=== PATIENT | male | born 1975 | race African-American/Black ===

== ENCOUNTER 2021-04-25 14:51 | Emergency (ER) | payer MEDICAID ==
[~2021-04-25] VITALS: Ht 177.8 cm; Wt 100.0 kg
[2021-04-25 14:55] VITALS: BP 98/66
[2021-04-25 16:24] LABS: BASOPHILS % 1.4 % (0.0-2.0); EOSINOPHILS % 3.8 % (0.0-5.0); HEMATOCRIT. 37.2 % (42.0-52.0); HEMOGLOBIN. 11.7 g/dL (14.0-18.0); MEAN CORPUSCULAR HEMOGLOBIN 28.1 pg (28.0-32.0); MEAN CORPUSCULAR VOLUME 89.1 fL (80.0-94.0); MEAN PLATELET VOLUME 7.8 fl (7.4-10.4); MONOCYTES % 6.2 % (2.0-8.0); NEUTROPHILS % 65.6 % (40.0-76.0); PLATELET 257 x1000/uL (130-400); RED BLOOD CELL COUNT 4.17 mill/uL (4.7-6.1); RED CELL DISTRIBUTION WIDTH 18.3 % (11.6-14.6)
[2021-04-25 16:29] LABS: CHLORIDE 108 mEq/L (98-107)
== END 2021-04-25 18:37 | disposition left against medical advice (07) ==
LOC: ER 14:51
DX: R07.9 Chest pain, unspecified (principal); J45.909 Unspecified asthma, uncomplicated; I50.9 Heart failure, unspecified
CPT/HCPCS: 36415; 71045; 80053; 83880; 84484; 85025; 93005; 99285

== ENCOUNTER 2021-09-06 05:05 | Inpatient (IN) | payer MEDICAID ==
[~2021-09-06] VITALS: Ht 172.7 cm; Wt 83.5 kg
[~2021-09-06 05:05] MED LIST: ASPI-1497 PO; FURO-152 MT
[2021-09-06] MEDS ORDERED: MORPHINE SULFATE 4 MG/ML CPJ (NOT FOR IM USE) IV STA (05:27)
[2021-09-06 05:57] LABS: BASOPHILS % 0.9 % (0.0-2.0); EOSINOPHILS % 3.8 % (0.0-5.0); HEMATOCRIT. 40.9 % (42.0-52.0); HEMOGLOBIN. 13.3 g/dL (14.0-18.0); LYMPHOCYTES % 32.3 % (20.0-50.0); MEAN CORPUSCULAR HEMOGLOBIN 30.1 pg (28.0-32.0); MEAN CORPUSCULAR VOLUME 92.5 fL (80.0-94.0); MEAN PLATELET VOLUME 7.5 fl (7.4-10.4); MONOCYTES % 6.2 % (2.0-8.0); NEUTROPHILS % 56.8 % (40.0-76.0); PLATELET 243 x1000/uL (130-400); RED BLOOD CELL COUNT 4.42 mill/uL (4.7-6.1); RED CELL DISTRIBUTION WIDTH 16.7 % (11.6-14.6)
[2021-09-06 06:06] LABS: CHLORIDE 109 mEq/L (98-107)
[2021-09-06 06:07] LABS: INR 1.1; PROTHROMBIN TIME 12.1 sec (9.6-11.0)
[2021-09-06] MEDS ORDERED: ENOXAPARIN 80MG/0.8ML SYR SUBCUT ONE (07:15)
[2021-09-06] MEDS ORDERED: ASPIRIN 325MG EC TABLET PO ONE (07:15)
[2021-09-06 09:30] VITALS: BP 130/58
[2021-09-06 09:40] VITALS: BP 130/58
[2021-09-06] MEDS ORDERED: CLONIDINE 0.1MG TABLET PO PRN (09:45)
[2021-09-06] MEDS ORDERED: GUAIFENESIN 200MG/10ML SUGAR FREE UDC PO PRN (09:45)
[2021-09-06] MEDS ORDERED: ONDANSETRON HCL 4MG/2ML INJ IV PRN (09:45)
[2021-09-06] MEDS ORDERED: DOCUSATE SODIUM 100MG CAPSULE PO PRN (09:45)
[2021-09-06] MEDS: ENOXAPARIN 40MG/0.4ML SYR SUBCUT SCH (10:47)
[2021-09-06] MEDS: HYDROCODONE/ACETAMINOPHEN 5/325MG TABLET PO PRN ×2 (10:48→19:26)
[2021-09-06] MEDS: SPIRONOLACTONE 25MG TABLET PO SCH (10:49)
[2021-09-06] MEDS: FUROSEMIDE 40MG/4ML VIAL IV SCH (10:50)
[2021-09-06] MEDS: IPRATROPIUM/ALBUTEROL 0.5-3(2.5)MG/3ML NEB HHN PRN (11:30)
[2021-09-06 12:00] VITALS: BP 112/75
[2021-09-06] MEDS: NITROGLYCERIN OINT 1GM/INCH UDPKT TD SCH ×2 (13:55→21:20)
[2021-09-06 15:25] LABS: CLARITY URINE CLEAR (CLEAR); COLOR URINE YELLOW (YELLOW); KETONES URINE NEGATIVE (NEGATIVE); LEUKOCYTE ESTERASE URINE NEGATIVE (NEGATIVE); NITRITE URINE NEGATIVE (NEGATIVE); OCCULT BLOOD URINE NEGATIVE (NEGATIVE); PH URINE 6.5 (4.5-8.0); PROTEIN URINE NEGATIVE (NEGATIVE); SPECIFIC GRAVITY URINE 1.008 (1.005-1.030)
[2021-09-06 15:52] LABS: *AMPHETAMINES SCREEN URINE NEGATIVE (NEGATIVE); *BARBITURATES SCREEN URINE NEGATIVE (NEGATIVE); *BENZODIAZEPINES SCREEN URINE NEGATIVE (NEGATIVE); *COCAINE SCREEN URINE NEGATIVE (NEGATIVE); CANNABINOID URINE SCREEN NEGATIVE (NEGATIVE); METHADONE URINE SCREEN NEGATIVE (NEGATIVE); OPIATES URINE SCREEN PRESUMTIVE POSITIVE (NEGATIVE); PHENCYCLIDINE URINE SCREEN NEGATIVE (NEGATIVE)
[2021-09-06 16:00] VITALS: BP 126/81
[2021-09-06] MEDS ORDERED: NALOXONE HCL 0.4MG/ML VIAL IV PRN (18:00)
[2021-09-06 20:00] VITALS: BP 134/99
[2021-09-06] MEDS: CARVEDILOL 6.25 MG TABLET PO SCH (21:19)
[2021-09-07] VITALS: BP 118/63
[2021-09-07] MEDS: IPRATROPIUM/ALBUTEROL 0.5-3(2.5)MG/3ML NEB HHN PRN ×4 (03:42→20:30)
[2021-09-07 04:00] VITALS: BP 130/85
[2021-09-07] MEDS: NITROGLYCERIN OINT 1GM/INCH UDPKT TD SCH (05:24)
[2021-09-07 06:31] LABS: BASOPHILS % 0.9 % (0.0-2.0); EOSINOPHILS % 4.2 % (0.0-5.0); HEMATOCRIT. 39.5 % (42.0-52.0); HEMOGLOBIN. 13.1 g/dL (14.0-18.0); MEAN CORPUSCULAR HEMOGLOBIN 30.6 pg (28.0-32.0); MEAN CORPUSCULAR VOLUME 92.4 fL (80.0-94.0); MEAN PLATELET VOLUME 7.9 fl (7.4-10.4); MONOCYTES % 6.7 % (2.0-8.0); NEUTROPHILS % 47.2 % (40.0-76.0); PLATELET 223 x1000/uL (130-400); RED BLOOD CELL COUNT 4.28 mill/uL (4.7-6.1); RED CELL DISTRIBUTION WIDTH 16.6 % (11.6-14.6)
[2021-09-07 07:55] LABS: CHLORIDE 107 mEq/L (98-107)
[2021-09-07 08:00] VITALS: BP 127/93
[2021-09-07 08:02] LABS: HDL CHOLESTEROL 52 mg/dL (40-59); LDL CHOLESTEROL 33 mg/dL (5-100)
[2021-09-07] MEDS: CARVEDILOL 6.25 MG TABLET PO SCH ×2 (08:38→20:56)
[2021-09-07] MEDS: ASPIRIN 81MG EC TABLET PO SCH (08:38)
[2021-09-07] MEDS: FUROSEMIDE 40MG/4ML VIAL IV SCH (08:38)
[2021-09-07] MEDS: SPIRONOLACTONE 25MG TABLET PO SCH (08:38)
[2021-09-07] MEDS: ENOXAPARIN 40MG/0.4ML SYR SUBCUT SCH (09:02)
[2021-09-07] MEDS: HYDROCODONE/APAP 7.5/325MG 1 TAB TABLET PO PRN ×3 (10:45→20:58)
[2021-09-07 12:00] VITALS: BP 122/89
[2021-09-07] MEDS: CHLORDIAZEPOXIDE 25MG CAPSULE PO SCH ×2 (12:41→23:46)
[2021-09-07 16:00] VITALS: BP 106/75
[2021-09-07 20:00] VITALS: BP 138/91
[2021-09-08] VITALS: BP 126/92
[2021-09-08] MEDS: HYDROCODONE/APAP 7.5/325MG 1 TAB TABLET PO PRN (02:40)
[2021-09-08 04:00] VITALS: BP 144/60
[2021-09-08] MEDS: CHLORDIAZEPOXIDE 25MG CAPSULE PO SCH ×3 (06:05→23:14)
[2021-09-08 08:00] VITALS: BP 137/62
[2021-09-08] MEDS: IPRATROPIUM/ALBUTEROL 0.5-3(2.5)MG/3ML NEB HHN PRN ×3 (08:32→21:16)
[2021-09-08] MEDS: ASPIRIN 81MG EC TABLET PO SCH (09:19)
[2021-09-08] MEDS: CARVEDILOL 6.25 MG TABLET PO SCH ×2 (09:19→21:32)
[2021-09-08] MEDS: SPIRONOLACTONE 25MG TABLET PO SCH (09:19)
[2021-09-08] MEDS: ENOXAPARIN 40MG/0.4ML SYR SUBCUT SCH (09:19)
[2021-09-08] MEDS: FUROSEMIDE 40MG/4ML VIAL IV SCH (09:19)
[2021-09-08 12:00] VITALS: BP 110/67
[2021-09-08] MEDS: KETOROLAC 15MG/ML VIAL IV PRN ×2 (14:08→21:28)
[2021-09-08 16:00] VITALS: BP 103/69
[2021-09-08 20:00] VITALS: BP 116/68
[2021-09-09] VITALS: BP 119/78
[2021-09-09] MEDS: IPRATROPIUM/ALBUTEROL 0.5-3(2.5)MG/3ML NEB HHN PRN ×3 (01:53→16:45)
[2021-09-09 04:00] VITALS: BP 113/75
[2021-09-09] MEDS: KETOROLAC 15MG/ML VIAL IV PRN (04:21)
[2021-09-09] MEDS: CHLORDIAZEPOXIDE 25MG CAPSULE PO SCH (06:19)
[2021-09-09 08:00] VITALS: BP 123/70
[2021-09-09] MEDS: CARVEDILOL 6.25 MG TABLET PO SCH ×2 (09:00→20:42)
[2021-09-09] MEDS: FUROSEMIDE 40MG/4ML VIAL IV SCH (09:09)
[2021-09-09] MEDS: ENOXAPARIN 40MG/0.4ML SYR SUBCUT SCH (09:09)
[2021-09-09] MEDS: ASPIRIN 81MG EC TABLET PO SCH (09:09)
[2021-09-09] MEDS: HYDROCODONE/ACETAMINOPHEN 5/325MG TABLET PO PRN ×3 (09:10→22:28)
[2021-09-09] MEDS: SPIRONOLACTONE 25MG TABLET PO SCH (09:10)
[2021-09-09 12:00] VITALS: BP 99/59
[2021-09-09 16:00] VITALS: BP 111/68
[2021-09-09 20:00] VITALS: BP 115/86
[2021-09-10] VITALS: BP 122/80
[2021-09-10] MEDS: IPRATROPIUM/ALBUTEROL 0.5-3(2.5)MG/3ML NEB HHN PRN ×2 (03:07→21:50)
[2021-09-10 04:00] VITALS: BP 110/72
[2021-09-10 08:00] VITALS: BP 106/51
[2021-09-10] MEDS: FUROSEMIDE 40MG/4ML VIAL IV SCH ×2 (08:41→10:47)
[2021-09-10] MEDS: SPIRONOLACTONE 25MG TABLET PO SCH ×2 (08:41→10:47)
[2021-09-10] MEDS: CARVEDILOL 6.25 MG TABLET PO SCH ×2 (08:41→21:00)
[2021-09-10] MEDS: ASPIRIN 81MG EC TABLET PO SCH (08:48)
[2021-09-10] MEDS: HYDROCODONE/APAP 7.5/325MG 1 TAB TABLET PO PRN ×2 (08:49→22:02)
[2021-09-10] MEDS: ENOXAPARIN 40MG/0.4ML SYR SUBCUT SCH (10:36)
[2021-09-10 12:00] VITALS: BP 125/95
[2021-09-10 16:00] VITALS: BP 109/57
[2021-09-10] MEDS: HYDROCODONE/ACETAMINOPHEN 5/325MG TABLET PO PRN (16:10)
[2021-09-10 20:00] VITALS: BP 109/80
[2021-09-11] VITALS: BP 137/83
[2021-09-11 04:00] VITALS: BP 104/55
[2021-09-11] MEDS: HYDROCODONE/APAP 7.5/325MG 1 TAB TABLET PO PRN (04:48)
[2021-09-11 08:00] VITALS: BP 125/90
[2021-09-11] MEDS: ENOXAPARIN 40MG/0.4ML SYR SUBCUT SCH (09:43)
[2021-09-11] MEDS: FUROSEMIDE 40MG/4ML VIAL IV SCH (09:44)
[2021-09-11] MEDS: SPIRONOLACTONE 25MG TABLET PO SCH (09:44)
[2021-09-11] MEDS: ASPIRIN 81MG EC TABLET PO SCH (09:44)
[2021-09-11] MEDS: CARVEDILOL 6.25 MG TABLET PO SCH ×2 (09:44→21:49)
[2021-09-11 12:00] VITALS: BP 124/85
[2021-09-11 16:00] VITALS: BP 115/81
[2021-09-11] MEDS: ACETAMINOPHEN 325MG TABLET PO PRN (18:23)
[2021-09-11] MEDS: LORAZEPAM 0.5MG TABLET PO SCH (18:23)
[2021-09-11 20:00] VITALS: BP 125/66
[2021-09-12] VITALS: BP 111/63
[2021-09-12 04:00] VITALS: BP 110/69
[2021-09-12] MEDS: IPRATROPIUM/ALBUTEROL 0.5-3(2.5)MG/3ML NEB HHN PRN (04:14)
[2021-09-12] MEDS: ACETAMINOPHEN 325MG TABLET PO PRN (05:34)
[2021-09-12 08:00] VITALS: BP 109/66
[2021-09-12] MEDS: ASPIRIN 81MG EC TABLET PO SCH (08:52)
[2021-09-12] MEDS: FUROSEMIDE 40MG/4ML VIAL IV SCH (08:52)
[2021-09-12] MEDS: LORAZEPAM 0.5MG TABLET PO SCH (08:53)
[2021-09-12] MEDS: SPIRONOLACTONE 25MG TABLET PO SCH (08:53)
[2021-09-12] MEDS: CARVEDILOL 6.25 MG TABLET PO SCH (08:57)
[2021-09-12] MEDS: ENOXAPARIN 40MG/0.4ML SYR SUBCUT SCH (09:12)
[2021-09-12 11:46] VITALS: BP 109/66
== END 2021-09-12 14:25 | disposition home or self-care (01) | DRG 194 ==
LOC: ER 05:05 → 8WST 08:20 → EDBEDREQ 08:22 → EDBEDREQTM 08:22 → ENRESERV 08:24
PROVIDERS: ADMIT Hospitalist; ATTEND Hospitalist
DX: I11.0 Hypertensive heart disease with heart failure (principal); I47.2 Ventricular tachycardia; I50.23 Acute on chronic systolic (congestive) heart failure; F15.10 Other stimulant abuse, uncomplicated; F17.200 Nicotine dependence, unspecified, uncomplicated; Z20.822 Contact with and (suspected) exposure to COVID-19; F12.10 Cannabis abuse, uncomplicated; J45.909 Unspecified asthma, uncomplicated; Z59.00 Homelessness unspecified; Z82.49 Family history of ischemic heart disease and other diseases of the circulatory system; Z79.82 Long term (current) use of aspirin; Z79.84 Long term (current) use of oral hypoglycemic drugs; Z79.899 Other long term (current) drug therapy
CPT/HCPCS: 36415; 71045; 74176; 80053; 80061; 80305; 81003; 84484; 85025; 87426; 93005; 94640; 99291; J1650; J1885; J1940; J2270

== ENCOUNTER 2021-09-24 21:49 | Emergency (ER) | payer MEDICAID ==
[~2021-09-24] VITALS: Ht 162.6 cm; Wt 87.0 kg
[2021-09-25] MEDS ORDERED: ASPIRIN 81MG TABLET PO ONE (02:30)
[2021-09-25 02:55] LABS: CHLORIDE 113 mEq/L (98-107)
[2021-09-25 03:17] LABS: EOSINOPHILS % 7.1 % (0.0-5.0); HEMATOCRIT. 41.5 % (42.0-52.0); HEMOGLOBIN. 13.6 g/dL (14.0-18.0); LYMPHOCYTES % 37.6 % (20.0-50.0); MEAN CORPUSCULAR HEMOGLOBIN 29.7 pg (28.0-32.0); MEAN CORPUSCULAR VOLUME 90.4 fL (80.0-94.0); MEAN PLATELET VOLUME 8.9 fl (7.4-10.4); MONOCYTES % 5.9 % (2.0-8.0); NEUTROPHILS % 48.4 % (40.0-76.0); PLATELET 259 x1000/uL (130-400); RED BLOOD CELL COUNT 4.59 mill/uL (4.7-6.1); RED CELL DISTRIBUTION WIDTH 15.8 % (11.6-14.6)
[2021-09-25 07:35] VITALS: BP 140/84
== END 2021-09-25 07:36 | disposition home or self-care (01) ==
LOC: ER 21:49
DX: R07.89 Other chest pain (principal); I11.0 Hypertensive heart disease with heart failure; I50.9 Heart failure, unspecified; J45.909 Unspecified asthma, uncomplicated; F12.10 Cannabis abuse, uncomplicated; F15.10 Other stimulant abuse, uncomplicated; Z20.822 Contact with and (suspected) exposure to COVID-19
CPT/HCPCS: 36415; 71045; 80053; 83880; 84484; 85025; 87426; 87804; 93005; 99285; C9803

== ENCOUNTER 2021-10-06 02:03 | Emergency (ER) | payer MEDICAID ==
[~2021-10-06] VITALS: Ht 172.7 cm; Wt 114.0 kg
[2021-10-06 02:10] VITALS: BP 119/86
[2021-10-06] MEDS ORDERED: MAGNESIUM/ALUMINUM HYDROXIDE/SIMETHICONE 30ML UDC PO STA (05:25)
[2021-10-06 05:42] LABS: BASOPHILS % 0.8 % (0.0-2.0); EOSINOPHILS % 4.8 % (0.0-5.0); HEMATOCRIT. 40.9 % (42.0-52.0); HEMOGLOBIN. 13.1 g/dL (14.0-18.0); LYMPHOCYTES % 33.7 % (20.0-50.0); MEAN CORPUSCULAR HEMOGLOBIN 29.4 pg (28.0-32.0); MEAN CORPUSCULAR VOLUME 92.1 fL (80.0-94.0); MEAN PLATELET VOLUME 8.2 fl (7.4-10.4); MONOCYTES % 6.6 % (2.0-8.0); NEUTROPHILS % 54.1 % (40.0-76.0); PLATELET 196 x1000/uL (130-400); RED BLOOD CELL COUNT 4.45 mill/uL (4.7-6.1); RED CELL DISTRIBUTION WIDTH 16.8 % (11.6-14.6)
[2021-10-06 05:49] LABS: CHLORIDE 106 mEq/L (98-107)
[2021-10-06 05:57] LABS: ETHANOL BLOOD < 10 mg/dL
[2021-10-06] MEDS ORDERED: DICYCLOMINE 10 MG/5 ML ORAL SYR PO STA (07:37)
[2021-10-06] MEDS ORDERED: VISCOUS LIDOCAINE 2% 15 ML UDC PO STA (07:37)
[2021-10-06] MEDS ORDERED: OMEP40CA20 MT (07:43)
[2021-10-06 09:43] LABS: *AMPHETAMINES SCREEN URINE PRESUMTIVE POSITIVE (NEGATIVE); *BARBITURATES SCREEN URINE NEGATIVE (NEGATIVE); *BENZODIAZEPINES SCREEN URINE PRESUMTIVE POSITIVE (NEGATIVE); *COCAINE SCREEN URINE NEGATIVE (NEGATIVE); CANNABINOID URINE SCREEN NEGATIVE (NEGATIVE); METHADONE URINE SCREEN NEGATIVE (NEGATIVE); OPIATES URINE SCREEN NEGATIVE (NEGATIVE); PHENCYCLIDINE URINE SCREEN NEGATIVE (NEGATIVE)
== END 2021-10-06 07:46 | disposition home or self-care (01) ==
LOC: ER 02:03
DX: R10.9 Unspecified abdominal pain (principal); I11.0 Hypertensive heart disease with heart failure; I50.9 Heart failure, unspecified; Z79.82 Long term (current) use of aspirin
CPT/HCPCS: 36415; 71045; 80053; 80305; 80320; 85025; 93005; 99285; G0480

== ENCOUNTER 2021-12-15 09:18 | Emergency (ER) | payer MEDICAID ==
[~2021-12-15] VITALS: Ht 172.7 cm; Wt 70.0 kg
[~2021-12-15 09:18] MED LIST changes: +LEVO25TA7 PO; +LOSA25TA3 PO; +OMEP40CA20 MT; +SPIR25TA PO
[2021-12-15 09:23] VITALS: BP 128/73
[2021-12-15] MEDS ORDERED: ACETAMINOPHEN 325MG TABLET PO ONE (09:30)
[2021-12-15] MEDS ORDERED: ONDANSETRON HCL 4MG TABLET PO ONE (09:30)
[2021-12-15] MEDS ORDERED: T3 PO (09:32)
[2021-12-15] MEDS ORDERED: ONDA4TAB50 PO (10:30)
== END 2021-12-15 10:38 | disposition home or self-care (01) ==
LOC: ER 09:18
DX: K40.90 Unilateral inguinal hernia, without obstruction or gangrene, not specified as recurrent (principal); I11.0 Hypertensive heart disease with heart failure; I50.9 Heart failure, unspecified; J45.909 Unspecified asthma, uncomplicated; Z79.82 Long term (current) use of aspirin
CPT/HCPCS: 99283; Q0162

== ENCOUNTER 2022-06-14 10:36 | Inpatient (IN) | payer MEDICAID ==
[~2022-06-14] VITALS: Ht 167.6 cm; Wt 80.7 kg
[2022-06-14 08:00] VITALS: BP 103/67
[~2022-06-14 10:36] MED LIST changes: +ATOR40TA70 PO; +CARV6.2548 PO; +DIPH25CA83 PO; +EMPA10TA PO; +FURO40TA5 PO; +IBUP-2437 PO; +LISI-186 PO; +ONDA4TAB50 PO; +T3 PO
[2022-06-14 12:55] LABS: BASOPHILS % 0.7 % (0.0-2.0); EOSINOPHILS % 1.8 % (0.0-5.0); HEMATOCRIT. 40.8 % (42.0-52.0); HEMOGLOBIN. 13.3 g/dL (14.0-18.0); LYMPHOCYTES % 21.7 % (20.0-50.0); MEAN CORPUSCULAR HEMOGLOBIN 28.7 pg (28.0-32.0); MEAN CORPUSCULAR VOLUME 88.3 fL (80.0-94.0); MEAN PLATELET VOLUME 7.8 fl (7.4-10.4); MONOCYTES % 6.1 % (2.0-8.0); NEUTROPHILS % 69.7 % (40.0-76.0); PLATELET 288 x1000/uL (130-400); RED BLOOD CELL COUNT 4.62 mill/uL (4.7-6.1)
[2022-06-14 13:10] LABS: CHLORIDE 101 mEq/L (98-107)
[2022-06-14] MEDS ORDERED: ASPIRIN 325MG EC TABLET PO ONE (13:30)
[2022-06-14] MEDS ORDERED: CEFTRIAXONE 1 G PREMIX 50 ML IV ONE (15:15)
[2022-06-14] MEDS ORDERED: AZITHROMYCIN 500MG/250ML 250 ML IV ONE (15:15)
[2022-06-14] MEDS ORDERED: AZITHROMYCIN 500MG/250ML 250 ML IV NR (16:45)
[2022-06-14] MEDS ORDERED: ASPIRIN 325MG EC TABLET PO NR (16:45)
[2022-06-14] MEDS ORDERED: CEFTRIAXONE 1 G PREMIX 50 ML IV NR (16:45)
[2022-06-14] MEDS ORDERED: MORPHINE SULFATE 2 MG/ML CPJ (NOT FOR IM USE) IV PRN (20:15)
[2022-06-14] MEDS ORDERED: NALOXONE HCL 0.4MG/ML VIAL IV PRN (20:15)
[2022-06-14] MEDS ORDERED: QUET25TA PO (22:30)
[2022-06-14] MEDS ORDERED: METO-396 PO (22:31)
[2022-06-14 23:00] VITALS: BP 103/67
[2022-06-14] MEDS ORDERED: PNEUMOCOCCAL 23-VAL P-SAC VAC 0.5 ML IM ONE (23:15)
[2022-06-14] MEDS ORDERED: INFLUENZA VACCINE 05/PF 0.5 ML SYRINGE IM ONE (23:15)
[2022-06-14] MEDS ORDERED: DIPHENHYDRAMINE 25MG CAPSULE PO PRN (23:30)
[2022-06-15] VITALS: BP 121/82
[2022-06-15 04:00] VITALS: BP 102/60
[2022-06-15 07:53] VITALS: BP 96/88
[2022-06-15] MEDS: LOSARTAN POTASSIUM 25 MG TABLET PO SCH (09:14)
[2022-06-15] MEDS: CARVEDILOL 3.125 MG TABLET PO SCH ×2 (09:14→21:00)
[2022-06-15] MEDS: ASPIRIN 81MG EC TABLET PO SCH (09:14)
[2022-06-15] MEDS: ENOXAPARIN 40MG/0.4ML SYR SUBCUT SCH (09:15)
[2022-06-15] MEDS: SPIRONOLACTONE 25MG TABLET PO SCH (09:15)
[2022-06-15] MEDS: HYDROCODONE/ACETAMINOPHEN 5/325MG TABLET PO PRN ×2 (09:17→23:10)
[2022-06-15 11:17] LABS: CREATINE KINASE MB FRACTION 2.1 ng/mL (0.5-3.6)
[2022-06-15 12:00] VITALS: BP 108/65
[2022-06-15] MEDS ORDERED: IPRATROPIUM/ALBUTEROL 0.5-3(2.5)MG/3ML NEB HHN PRN (13:00)
[2022-06-15] MEDS ORDERED: IPRATROPIUM BROMIDE (0.02%) 0.5MG/2.5ML NEB HHN PRN (13:15)
[2022-06-15] MEDS ORDERED: ALBUTEROL (0.083%) 2.5MG/3ML NEB HHN PRN (13:15)
[2022-06-15 16:00] VITALS: BP 112/62
[2022-06-15 18:06] LABS: *AMPHETAMINES SCREEN URINE NEGATIVE (NEGATIVE); *BARBITURATES SCREEN URINE NEGATIVE (NEGATIVE); *BENZODIAZEPINES SCREEN URINE NEGATIVE (NEGATIVE); *COCAINE SCREEN URINE NEGATIVE (NEGATIVE); CANNABINOID URINE SCREEN NEGATIVE (NEGATIVE); METHADONE URINE SCREEN NEGATIVE (NEGATIVE); OPIATES URINE SCREEN PRESUMTIVE POSITIVE (NEGATIVE); PHENCYCLIDINE URINE SCREEN NEGATIVE (NEGATIVE)
[2022-06-15] MEDS: ATORVASTATIN CALCIUM 40MG TABLET PO SCH (18:15)
[2022-06-15] MEDS: FUROSEMIDE 40MG/4ML VIAL IVP SCH (18:15)
[2022-06-15 20:00] VITALS: BP 105/55
[2022-06-15] MEDS: QUETIAPINE FUMARATE 25MG TABLET PO SCH (21:00)
[2022-06-16 00:38] VITALS: BP 100/58
[2022-06-16 04:00] VITALS: BP 109/55
[2022-06-16 08:26] VITALS: BP 109/81
[2022-06-16 08:27] LABS: CHLORIDE 105 mEq/L (98-107)
[2022-06-16] MEDS: FUROSEMIDE 40MG/4ML VIAL IVP SCH ×2 (08:51→17:34)
[2022-06-16] MEDS: LOSARTAN POTASSIUM 25 MG TABLET PO SCH (08:52)
[2022-06-16] MEDS: ASPIRIN 81MG EC TABLET PO SCH (08:52)
[2022-06-16] MEDS: SPIRONOLACTONE 25MG TABLET PO SCH (08:52)
[2022-06-16] MEDS: CARVEDILOL 3.125 MG TABLET PO SCH (08:53)
[2022-06-16] MEDS: ENOXAPARIN 40MG/0.4ML SYR SUBCUT SCH (08:54)
[2022-06-16] MEDS: HYDROCODONE/ACETAMINOPHEN 5/325MG TABLET PO PRN ×2 (08:55→21:51)
[2022-06-16 12:22] VITALS: BP 106/65
[2022-06-16 16:39] VITALS: BP 110/51
[2022-06-16] MEDS: ATORVASTATIN CALCIUM 40MG TABLET PO SCH (17:34)
[2022-06-16 20:43] VITALS: BP 105/67
[2022-06-16] MEDS: METOPROLOL TARTRATE 25MG TABLET PO SCH (21:00)
[2022-06-16] MEDS: QUETIAPINE FUMARATE 25MG TABLET PO SCH (21:51)
[2022-06-17 00:28] VITALS: BP 93/57
[2022-06-17 04:00] VITALS: BP 98/41
[2022-06-17 08:00] VITALS: BP 112/69
[2022-06-17] MEDS: ENOXAPARIN 40MG/0.4ML SYR SUBCUT SCH (08:16)
[2022-06-17] MEDS: FUROSEMIDE 40MG/4ML VIAL IVP SCH (08:16)
[2022-06-17] MEDS: SPIRONOLACTONE 25MG TABLET PO SCH (08:16)
[2022-06-17] MEDS: ASPIRIN 81MG EC TABLET PO SCH (08:17)
[2022-06-17] MEDS: METOPROLOL TARTRATE 25MG TABLET PO SCH (08:17)
[2022-06-17] MEDS: LOSARTAN POTASSIUM 25 MG TABLET PO SCH (08:17)
[2022-06-17 12:00] VITALS: BP 117/76
[2022-06-17] MEDS ORDERED: SPIR25TA PO (12:20)
[2022-06-17] MEDS ORDERED: LISI-186 PO (12:20)
[2022-06-17] MEDS ORDERED: DIPH25CA83 PO (12:20)
[2022-06-17] MEDS ORDERED: QUET25TA PO (12:20)
[2022-06-17] MEDS ORDERED: ASPI-1497 PO (12:20)
[2022-06-17] MEDS ORDERED: METO-396 PO (12:20)
[2022-06-17] MEDS ORDERED: ATOR40TA70 PO (12:20)
[2022-06-17] MEDS ORDERED: FURO40TA5 PO ×2 (12:20)
[2022-06-17] MEDS ORDERED: FURO80TA87 MT (12:22)
[2022-06-17] MEDS ORDERED: T3 PO (13:30)
[2022-06-17] MEDS: HYDROCODONE/ACETAMINOPHEN 5/325MG TABLET PO PRN (13:51)
[2022-06-17 14:09] VITALS: BP 117/76
[2022-06-17] MEDS ORDERED: FUROSEMIDE 40MG TABLET PO SCH (17:00)
== END 2022-06-17 17:51 | disposition home or self-care (01) | DRG 194 ==
LOC: ER 10:36 → MICUSO 16:20 → 7WST 21:02
PROVIDERS: ADMIT Internal Medicine; ATTEND Internal Medicine
DX: I11.0 Hypertensive heart disease with heart failure (principal); I21.A1 Myocardial infarction type 2; I42.8 Other cardiomyopathies; I50.23 Acute on chronic systolic (congestive) heart failure; Z20.822 Contact with and (suspected) exposure to COVID-19; E11.9 Type 2 diabetes mellitus without complications; J45.909 Unspecified asthma, uncomplicated; K46.9 Unspecified abdominal hernia without obstruction or gangrene; F17.210 Nicotine dependence, cigarettes, uncomplicated; F15.10 Other stimulant abuse, uncomplicated; I25.2 Old myocardial infarction; Z79.899 Other long term (current) drug therapy; J18.9 Pneumonia, unspecified organism
CPT/HCPCS: 36415; 71045; 80048; 80053; 80305; 82550; 82553; 83036; 83880; 84484; 85025; 87426; 87804; 90686; 90732; 93005; 93306; 99291; J0456; J0696; J1650; J1940; J2270; Q0163

== ENCOUNTER 2022-08-24 03:16 | Inpatient (IN) | payer MEDICAID, OTHER ==
[~2022-08-24] VITALS: Ht 172.7 cm; Wt 81.4 kg
[~2022-08-24 03:16] MED LIST changes: -CARV6.2548 PO; -EMPA10TA PO; -FURO-152 MT; -FURO40TA5 PO; +FURO80TA87 MT; -IBUP-2437 PO; -LEVO25TA7 PO; -LOSA25TA3 PO; +METO-396 PO; -OMEP40CA20 MT; -ONDA4TAB50 PO; +QUET25TA PO
[2022-08-24 05:15] LABS: BASOPHILS % 0.6 % (0.0-2.0); EOSINOPHILS % 5.3 % (0.0-5.0); HEMATOCRIT. 34.8 % (42.0-52.0); HEMOGLOBIN. 11.6 g/dL (14.0-18.0); LYMPHOCYTES % 28.2 % (20.0-50.0); MEAN CORPUSCULAR HEMOGLOBIN 29.2 pg (28.0-32.0); MEAN CORPUSCULAR VOLUME 87.4 fL (80.0-94.0); MEAN PLATELET VOLUME 7.8 fl (7.4-10.4); MONOCYTES % 10.9 % (2.0-8.0); PLATELET 239 x1000/uL (130-400); RED BLOOD CELL COUNT 3.98 mill/uL (4.7-6.1); RED CELL DISTRIBUTION WIDTH 16.6 % (11.6-14.6)
[2022-08-24 05:24] LABS: CHLORIDE 106 mEq/L (98-107); INR 1.1; PROTHROMBIN TIME 12.1 sec (9.6-11.0)
[2022-08-24] MEDS ORDERED: ALBUTEROL (0.083%) 2.5MG/3ML NEB HHN STA (05:24)
[2022-08-24] MEDS ORDERED: IPRATROPIUM BROMIDE (0.02%) 0.5MG/2.5ML NEB HHN STA (05:24)
[2022-08-24] MEDS ORDERED: NITROGLYCERIN 0.4MG TABLET SL SL PRN (05:30)
[2022-08-24] MEDS ORDERED: FUROSEMIDE 40MG/4ML VIAL IV ONE (05:30)
[2022-08-24 06:56] LABS: BG CARBOXYHEMOGLOBIN 0.4 % (0.5-1.5); BG DEOXYHEMOGLOBIN 5.6 % (0.0-5.0); BG FRACTION INSPIRED OXYGEN 35; BG HCO3 ACT 27.3 mmol/L (22.0-26.0); BG METHEMOGLOBIN 0.2 % (0.0-1.5); BG OXYGEN SATURATION 94.4 % (92.0-98.5); BG OXYHEMOGLOBIN 93.8 % (94.0-97.0); BG PCO2 40.7 mmHg (35.0-45.0); BG PH 7.445 (7.350-7.450); BG SAMPLE SITE LEFT RADIAL; BG TOTAL HEMOGLOBIN 12.4 g/dL (12.0-18.0); BG VENT MODE MASK - BIPAP
[2022-08-24] MEDS ORDERED: ENOXAPARIN 60MG/0.6ML SYR SUBCUT ONE (07:15)
[2022-08-24 08:11] LABS: CLARITY URINE CLEAR (CLEAR); COLOR URINE YELLOW (YELLOW); KETONES URINE NEGATIVE (NEGATIVE); LEUKOCYTE ESTERASE URINE NEGATIVE (NEGATIVE); NITRITE URINE NEGATIVE (NEGATIVE); OCCULT BLOOD URINE NEGATIVE (NEGATIVE); PH URINE 6.5 (4.5-8.0); PROTEIN URINE NEGATIVE (NEGATIVE); SPECIFIC GRAVITY URINE 1.007 (1.005-1.030)
[2022-08-24 08:42] LABS: *AMPHETAMINES SCREEN URINE NEGATIVE (NEGATIVE); *BARBITURATES SCREEN URINE NEGATIVE (NEGATIVE); *BENZODIAZEPINES SCREEN URINE NEGATIVE (NEGATIVE); *COCAINE SCREEN URINE NEGATIVE (NEGATIVE); CANNABINOID URINE SCREEN NEGATIVE (NEGATIVE); METHADONE URINE SCREEN NEGATIVE (NEGATIVE); OPIATES URINE SCREEN NEGATIVE (NEGATIVE); PHENCYCLIDINE URINE SCREEN NEGATIVE (NEGATIVE)
[2022-08-24] MEDS ORDERED: HYDROCODONE/ACETAMINOPHEN 5/325MG TABLET PO PRN (12:15)
[2022-08-24] MEDS ORDERED: NALOXONE HCL 0.4MG/ML VIAL IV PRN (12:30)
[2022-08-24] MEDS ORDERED: CEFTRIAXONE 1GM PREMIX 50 ML IV SCH (13:15)
[2022-08-24 13:16] VITALS: BP 125/80
[2022-08-24] MEDS ORDERED: HYDROXYZINE 25MG TABLET PO PRN (13:30)
[2022-08-24] MEDS ORDERED: GUAIFENESIN 200MG/10ML SUGAR FREE UDC PO PRN (13:30)
[2022-08-24 14:00] VITALS: BP 125/80
[2022-08-24] MEDS ORDERED: IPRATROPIUM BROMIDE (0.02%) 0.5MG/2.5ML NEB HHN SCH (14:00)
[2022-08-24] MEDS: METHYLPREDNISOLONE SOD SUCC 40 MG/ML VIAL IV SCH ×2 (15:22→21:34)
[2022-08-24] MEDS: IPRATROPIUM/ALBUTEROL 0.5-3(2.5)MG/3ML NEB HHN SCH ×2 (15:44→20:33)
[2022-08-24 16:00] VITALS: BP 143/99
[2022-08-24] MEDS: CEFTRIAXONE 1,000 MG in DEXTROSE 5% WATER 50 ML IV SCH (17:09)
[2022-08-24] MEDS: ATORVASTATIN CALCIUM 40MG TABLET PO SCH (19:00)
[2022-08-24 19:46] VITALS: BP 130/83
[2022-08-24] MEDS: QUETIAPINE FUMARATE 25MG TABLET PO SCH (21:34)
[2022-08-24 22:00] VITALS: BP 106/51
[2022-08-25] VITALS (8 sets, daily range): BP systolic 113–139; BP diastolic 67–85
[2022-08-25] MEDS: IPRATROPIUM/ALBUTEROL 0.5-3(2.5)MG/3ML NEB HHN SCH ×5 (00:30→16:12)
[2022-08-25] MEDS: METHYLPREDNISOLONE SOD SUCC 40 MG/ML VIAL IV SCH ×2 (05:30→14:02)
[2022-08-25] MEDS: FUROSEMIDE 40MG/4ML VIAL IVP SCH (08:59)
[2022-08-25] MEDS: ASPIRIN 81MG EC TABLET PO SCH (08:59)
[2022-08-25] MEDS: LISINOPRIL 5MG TABLET PO SCH (08:59)
[2022-08-25] MEDS: SPIRONOLACTONE 25MG TABLET PO SCH (08:59)
[2022-08-25] MEDS: CEFTRIAXONE 1,000 MG in DEXTROSE 5% WATER 50 ML IV SCH (14:02)
[2022-08-25] MEDS ORDERED: IPRATROPIUM/ALBUTEROL 0.5-3(2.5)MG/3ML NEB HHN PRN (15:15)
[2022-08-25] MEDS: ATORVASTATIN CALCIUM 40MG TABLET PO SCH (19:00)
[2022-08-25] MEDS: QUETIAPINE FUMARATE 25MG TABLET PO SCH (20:50)
[2022-08-26] VITALS: BP 113/68
[2022-08-26] MEDS: IPRATROPIUM/ALBUTEROL 0.5-3(2.5)MG/3ML NEB HHN SCH ×4 (00:26→21:09)
[2022-08-26 04:00] VITALS: BP 111/66
[2022-08-26 08:00] VITALS: BP 132/93
[2022-08-26] MEDS ORDERED: PREDNISONE 20MG TABLET PO SCH (09:00)
[2022-08-26] MEDS: LISINOPRIL 5MG TABLET PO SCH (10:49)
[2022-08-26] MEDS: ASPIRIN 81MG EC TABLET PO SCH (10:49)
[2022-08-26] MEDS: SPIRONOLACTONE 25MG TABLET PO SCH (10:50)
[2022-08-26] MEDS: FUROSEMIDE 40MG/4ML VIAL IVP SCH (10:50)
[2022-08-26 12:00] VITALS: BP 108/84
[2022-08-26] MEDS: AZITHROMYCIN 500MG in DEXTROSE 5% WATER 250ML IV SCH (14:21)
[2022-08-26] MEDS ORDERED: AZITHROMYCIN 250 MG in DEXT 5% WATER 250 ML IV SCH (14:30)
[2022-08-26 16:00] VITALS: BP 116/73
[2022-08-26 16:40] LABS: HEMATOCRIT. 37.8 % (42.0-52.0); HEMOGLOBIN. 12.3 g/dL (14.0-18.0); MEAN CORPUSCULAR HEMOGLOBIN 29.9 pg (28.0-32.0); MEAN CORPUSCULAR VOLUME 91.6 fL (80.0-94.0); MEAN PLATELET VOLUME 8.4 fl (7.4-10.4); PLATELET 298 x1000/uL (130-400); RED BLOOD CELL COUNT 4.12 mill/uL (4.7-6.1); RED CELL DISTRIBUTION WIDTH 17.1 % (11.6-14.6)
[2022-08-26 17:03] LABS: CHLORIDE 107 mEq/L (98-107)
[2022-08-26] MEDS: CEFTRIAXONE 1,000 MG in DEXTROSE 5% WATER 50 ML IV SCH (17:46)
[2022-08-26 18:49] LABS: PLATELET ESTIMATE NORMAL
[2022-08-26] MEDS: ATORVASTATIN CALCIUM 40MG TABLET PO SCH (19:00)
[2022-08-26 20:00] VITALS: BP 114/77
[2022-08-26] MEDS: QUETIAPINE FUMARATE 25MG TABLET PO SCH (20:33)
[2022-08-27] VITALS: BP 102/71
[2022-08-27] MEDS: IPRATROPIUM/ALBUTEROL 0.5-3(2.5)MG/3ML NEB HHN SCH ×5 (00:15→16:01)
[2022-08-27 04:00] VITALS: BP 108/75
[2022-08-27 08:00] VITALS: BP 107/74
[2022-08-27] MEDS ORDERED: PREDNISONE 20MG TABLET PO SCH (09:00)
[2022-08-27] MEDS: SPIRONOLACTONE 25MG TABLET PO SCH (09:03)
[2022-08-27] MEDS: LISINOPRIL 5MG TABLET PO SCH (09:03)
[2022-08-27] MEDS: FUROSEMIDE 40MG/4ML VIAL IVP SCH (09:03)
[2022-08-27] MEDS: ASPIRIN 81MG EC TABLET PO SCH (09:03)
[2022-08-27 12:00] VITALS: BP 107/72
[2022-08-27] MEDS: CEFTRIAXONE 1,000 MG in DEXTROSE 5% WATER 50 ML IV SCH (13:33)
[2022-08-27] MEDS ORDERED: SPIR25TA PO ×2 (14:17)
[2022-08-27] MEDS ORDERED: IPRA3AMP9 HHN (14:17)
[2022-08-27] MEDS ORDERED: FURO80TA87 MT (14:17)
[2022-08-27] MEDS ORDERED: T3 PO ×2 (14:17)
[2022-08-27] MEDS ORDERED: ASPI-1497 PO (14:17)
[2022-08-27] MEDS ORDERED: METO-396 PO (14:17)
[2022-08-27] MEDS ORDERED: QUET25TA PO (14:17)
[2022-08-27] MEDS ORDERED: LISI-186 PO (14:17)
[2022-08-27] MEDS ORDERED: P20 PO (14:17)
[2022-08-27] MEDS: AZITHROMYCIN 500MG in DEXTROSE 5% WATER 250ML IV SCH (15:48)
[2022-08-27 16:00] VITALS: BP 110/81
[2022-08-27] MEDS: ATORVASTATIN CALCIUM 40MG TABLET PO SCH (17:06)
[2022-08-27] MEDS ORDERED: MAGNESIUM/ALUMINUM HYDROXIDE/SIMETHICONE 30ML UDC PO NR (17:15)
[2022-08-27] MEDS ORDERED: ONDANSETRON HCL 4MG/2ML INJ IV NR (17:15)
[2022-08-27 17:24] VITALS: BP 110/81
[2022-08-28] MEDS ORDERED: PREDNISONE 20MG TABLET PO SCH (09:00)
[2022-08-28] MEDS ORDERED: AZITHROMYCIN 500 MG TABLET PO SCH (10:00)
== END 2022-08-27 18:35 | disposition home or self-care (01) | DRG 194 ==
LOC: ER 03:16 → 5EST 13:15 → 7EST 08-25 23:32
PROVIDERS: ADMIT Internal Medicine; ATTEND Internal Medicine
PROC: 5A09357 Assistance with Respiratory Ventilation, Less than 24 Consecutive Hours, Continuous Positive Airway Pressure (ICD-10-PCS; principal; 2022-08-24)
DX: I11.0 Hypertensive heart disease with heart failure (principal); J96.21 Acute and chronic respiratory failure with hypoxia; I21.A1 Myocardial infarction type 2; E87.1 Hypo-osmolality and hyponatremia; J44.0 Chronic obstructive pulmonary disease with (acute) lower respiratory infection; J18.9 Pneumonia, unspecified organism; I42.8 Other cardiomyopathies; Z99.81 Dependence on supplemental oxygen; I50.23 Acute on chronic systolic (congestive) heart failure; F17.210 Nicotine dependence, cigarettes, uncomplicated; K46.9 Unspecified abdominal hernia without obstruction or gangrene; J44.1 Chronic obstructive pulmonary disease with (acute) exacerbation; E11.9 Type 2 diabetes mellitus without complications; F15.10 Other stimulant abuse, uncomplicated; Z59.00 Homelessness unspecified
CPT/HCPCS: 36415; 36600; 71045; 80053; 80305; 81003; 82375; 82805; 83880; 84145; 84484; 85025; 93005; 94640; 94660; 99291; J0456; J0696; J1650; J1940; J2405; J2920; J7060; J7512

== ENCOUNTER 2022-09-22 22:16 | Emergency (ER) | payer MEDICAID, OTHER ==
[~2022-09-22] VITALS: Ht 167.6 cm; Wt 85.0 kg
[~2022-09-22 22:16] MED LIST changes: -ATOR40TA70 PO; +IPRA3AMP9 HHN; +P20 PO; -SPIR25TA PO; -T3 PO
[2022-09-23] MEDS ORDERED: FUROSEMIDE 40MG/4ML VIAL IV ONE (00:30)
[2022-09-23 00:32] LABS: EOSINOPHILS % 3.8 % (0.0-5.0); HEMATOCRIT. 36.2 % (42.0-52.0); LYMPHOCYTES % 29.5 % (20.0-50.0); MEAN CORPUSCULAR HEMOGLOBIN 29.2 pg (28.0-32.0); MEAN PLATELET VOLUME 7.2 fl (7.4-10.4); MONOCYTES % 7.4 % (2.0-8.0); NEUTROPHILS % 58.3 % (40.0-76.0); PLATELET 211 x1000/uL (130-400); RED BLOOD CELL COUNT 4.12 mill/uL (4.7-6.1); RED CELL DISTRIBUTION WIDTH 16.9 % (11.6-14.6)
[2022-09-23 00:40] LABS: CHLORIDE 100 mEq/L (98-107)
[2022-09-23] MEDS ORDERED: FURO80TA87 MT (04:47)
[2022-09-23] MEDS ORDERED: FUROSEMIDE 40MG/4ML VIAL IV NR (05:00)
[2022-09-23 05:24] VITALS: BP 119/89
== END 2022-09-23 05:25 | disposition home or self-care (01) ==
LOC: ER 22:16
DX: I11.0 Hypertensive heart disease with heart failure (principal); I50.9 Heart failure, unspecified; R10.9 Unspecified abdominal pain; J45.909 Unspecified asthma, uncomplicated; J44.9 Chronic obstructive pulmonary disease, unspecified; Z79.899 Other long term (current) drug therapy; Z79.82 Long term (current) use of aspirin
CPT/HCPCS: 36415; 71045; 80053; 83880; 84484; 85025; 96374; 99284; J1940; Z7610

== ENCOUNTER 2022-10-17 05:32 | Inpatient (IN) | payer OTHER ==
[2022-10-17] VITALS (11 sets, daily range): BP systolic 85–140; BP diastolic 29–98; PULSE 98–107; RESP 9–28; TEMP 97.6–98.2; O2SAT 99
[~2022-10-17] VITALS: Ht 167.6 cm; Wt 92.5 kg
[2022-10-17] MEDS ORDERED: IPRATROPIUM BROMIDE (0.02%) 0.5MG/2.5ML NEB HHN STA (06:05)
[2022-10-17] MEDS ORDERED: ALBUTEROL (0.083%) 2.5MG/3ML NEB HHN STA (06:05)
[2022-10-17] MEDS ORDERED: METHYLPREDNISOLONE SOD SUCC 125MG/2ML (ACT-O-VIAL) IV STA (06:05)
[2022-10-17] MEDS ORDERED: MAGNESIUM 2 G PREMIX 50 ML IV ONE (06:15)
[2022-10-17] MEDS ORDERED: FUROSEMIDE 100MG/10ML VIAL IVP ONE (06:15)
[2022-10-17] MEDS ORDERED: FUROSEMIDE 40MG/4ML VIAL IVP NR (06:15)
[2022-10-17 07:04] LABS: BASOPHILS % 0.4 % (0.0-2.0); EOSINOPHILS % 1.3 % (0.0-5.0); HEMATOCRIT. 36.3 % (42.0-52.0); LYMPHOCYTES % 17.5 % (20.0-50.0); MEAN CORPUSCULAR HEMOGLOBIN 29.7 pg (28.0-32.0); MEAN CORPUSCULAR VOLUME 89.6 fL (80.0-94.0); MEAN PLATELET VOLUME 8.2 fl (7.4-10.4); MONOCYTES % 8.2 % (2.0-8.0); NEUTROPHILS % 72.6 % (40.0-76.0); PLATELET 229 x1000/uL (130-400); RED BLOOD CELL COUNT 4.05 mill/uL (4.7-6.1); RED CELL DISTRIBUTION WIDTH 18.2 % (11.6-14.6)
[2022-10-17 07:05] LABS: INR 1.3; PARTIAL THROMBOPLASTIN TIME 26.8 sec (23.4-31.0); PROTHROMBIN TIME 13.5 sec (9.6-11.0)
[2022-10-17 07:07] LABS: CHLORIDE 104 mEq/L (98-107)
[2022-10-17 07:16] LABS: ETHANOL BLOOD < 10 mg/dL (-10)
[2022-10-17 09:30] LABS: CLARITY URINE CLEAR (CLEAR); COLOR URINE YELLOW (YELLOW); KETONES URINE NEGATIVE (NEGATIVE); LEUKOCYTE ESTERASE URINE NEGATIVE (NEGATIVE); NITRITE URINE NEGATIVE (NEGATIVE); OCCULT BLOOD URINE NEGATIVE (NEGATIVE); PH URINE 6.5 (4.5-8.0); PROTEIN URINE NEGATIVE (NEGATIVE); SPECIFIC GRAVITY URINE 1.007 (1.005-1.030)
[2022-10-17 09:35] LABS: *AMPHETAMINES SCREEN URINE PRESUMTIVE POSITIVE (NEGATIVE); *BARBITURATES SCREEN URINE NEGATIVE (NEGATIVE); *BENZODIAZEPINES SCREEN URINE NEGATIVE (NEGATIVE); *COCAINE SCREEN URINE NEGATIVE (NEGATIVE); CANNABINOID URINE SCREEN NEGATIVE (NEGATIVE); METHADONE URINE SCREEN NEGATIVE (NEGATIVE); OPIATES URINE SCREEN NEGATIVE (NEGATIVE); PHENCYCLIDINE URINE SCREEN NEGATIVE (NEGATIVE)
[2022-10-17] MEDS: ASPIRIN 81MG TABLET PO SCH (14:03)
[2022-10-17] MEDS: FUROSEMIDE 40MG/4ML VIAL IVP SCH ×2 (14:03→18:19)
[2022-10-17] MEDS: ENOXAPARIN 30MG/0.3ML SYR SUBCUT SCH (18:20)
[2022-10-17] MEDS: IPRATROPIUM/ALBUTEROL 0.5-3(2.5)MG/3ML NEB HHN SCH (20:33)
[2022-10-17] MEDS ORDERED: QUETIAPINE FUMARATE 25MG TABLET PO SCH (21:00)
[2022-10-18] VITALS (7 sets, daily range): BP systolic 101–147; BP diastolic 57–79; PULSE 70–98; RESP 17–22; TEMP 97.8–98.8
[2022-10-18] MEDS: IPRATROPIUM/ALBUTEROL 0.5-3(2.5)MG/3ML NEB HHN SCH ×3 (01:32→14:27)
[2022-10-18] MEDS: ENOXAPARIN 30MG/0.3ML SYR SUBCUT SCH (05:48)
[2022-10-18] MEDS: ASPIRIN 81MG TABLET PO SCH (08:39)
[2022-10-18] MEDS: FUROSEMIDE 40MG/4ML VIAL IVP SCH (08:39)
[2022-10-18] MEDS ORDERED: PREDNISONE 20MG TABLET PO SCH (09:00)
[2022-10-18] MEDS ORDERED: LISINOPRIL 5MG TABLET PO SCH (09:00)
[2022-10-18] MEDS ORDERED: METOPROLOL SUCCINATE 50MG ER TABLET PO SCH (09:00)
[2022-10-18] MEDS ORDERED: LISI-186 PO (10:02)
[2022-10-18] MEDS ORDERED: P20 PO (10:02)
[2022-10-18] MEDS ORDERED: METO-396 PO (10:02)
[2022-10-18] MEDS ORDERED: ALBU18HF2 IH (10:02)
[2022-10-18] MEDS ORDERED: FLUT1DIS3 INH (10:02)
[2022-10-18] MEDS ORDERED: FURO80TA87 MT (10:02)
[2022-10-20] MEDS ORDERED: FURO80TA3 PO (02:04)
== END 2022-10-18 18:20 | disposition home or self-care (01) | DRG 140 ==
LOC: ER 05:32 → 5EST 07:39
PROVIDERS: ADMIT Internal Medicine; ATTEND Internal Medicine
PROC: 5A09357 Assistance with Respiratory Ventilation, Less than 24 Consecutive Hours, Continuous Positive Airway Pressure (ICD-10-PCS; principal; 2022-10-17)
DX: J44.1 Chronic obstructive pulmonary disease with (acute) exacerbation (principal); J96.21 Acute and chronic respiratory failure with hypoxia; I50.23 Acute on chronic systolic (congestive) heart failure; I11.0 Hypertensive heart disease with heart failure; E66.9 Obesity, unspecified; Z20.822 Contact with and (suspected) exposure to COVID-19; F15.10 Other stimulant abuse, uncomplicated; F17.210 Nicotine dependence, cigarettes, uncomplicated; F20.9 Schizophrenia, unspecified; F10.10 Alcohol abuse, uncomplicated; R74.01 Elevation of levels of liver transaminase levels; Z79.899 Other long term (current) drug therapy; Z68.32 Body mass index [BMI] 32.0-32.9, adult; J68.0 Bronchitis and pneumonitis due to chemicals, gases, fumes and vapors
CPT/HCPCS: 36415; 71045; 80053; 80305; 80320; 81003; 83605; 83880; 84484; 85025; 87426; 93005; 94640; 94660; 99291; C9803; J1650; J1940; J2930; J3475; J7512; A4315; G0480

== ENCOUNTER 2023-01-09 15:21 | Inpatient (IN) | payer MEDICAID, OTHER ==
[~2023-01-09] VITALS: Ht 162.6 cm; Wt 81.2 kg
[~2023-01-09 15:21] MED LIST changes: +ALBU18HF2 IH; -DIPH25CA83 PO; +FLUT1DIS3 INH; +FURO80TA3 PO
[2023-01-09] MEDS ORDERED: IPRATROPIUM BROMIDE (0.02%) 0.5MG/2.5ML NEB HHN STA (16:21)
[2023-01-09] MEDS ORDERED: ALBUTEROL (0.083%) 2.5MG/3ML NEB HHN STA (16:21)
[2023-01-09 16:49] VITALS: PULSE 80; RESP 20
[2023-01-09 17:08] LABS: BASOPHILS % 0.6 % (0.0-2.0); HEMATOCRIT. 40.5 % (42.0-52.0); HEMOGLOBIN. 13.1 g/dL (14.0-18.0); LYMPHOCYTES % 33.6 % (20.0-50.0); MEAN CORPUSCULAR HEMOGLOBIN 28.4 pg (28.0-32.0); MEAN CORPUSCULAR HGB CONC 32.3 g/dL (31.0-37.0); MEAN PLATELET VOLUME 8.7 fl (7.4-10.4); MONOCYTES % 9.8 % (2.0-8.0); PLATELET 150 x1000/uL (130-400); WHITE BLOOD COUNT 4.4 x1000/uL (4.5-11.0)
[2023-01-09 17:24] LABS: CHLORIDE 107 mEq/L (98-107); INDEX HEMOLYSI 1 (1-3); INDEX ICTERIC 2 (1-4); INDEX LIPEMIC 1 (1-3); POTASSIUM 3.5 mEq/L (3.5-5.1); SODIUM 139 mEq/L (136-145)
[2023-01-09] MEDS ORDERED: ACETAMINOPHEN 500MG TABLET PO ONE (17:30)
[2023-01-09 17:42] LABS: ALANINE AMINOTRANSFERASE 24 IU/L (13-61); ALBUMIN 3.5 g/dL (3.4-5.0); ASPARTATE AMINOTRANSFERASE 35 IU/L (15-37); BILIRUBIN TOTAL 2.3 mg/dL (0.1-1.0); CALCIUM 8.3 mg/dL (8.5-10.1); CARBON DIOXIDE 24 mEq/L (21-32); CREATININE 0.9 mg/dL (0.6-1.3); GLUCOSE 82 mg/dL (70-105); NT PRO B-TYPE NATRIURETIC PEP 5732 pg/mL (5-125); UREA NITROGEN BLOOD 11 mg/dL (7-21)
[2023-01-09 17:57] LABS: TROPONIN I HIGH SENSITIVITY 136 ng/L (<78)
[2023-01-09] MEDS ORDERED: ASPIRIN 325MG EC TABLET PO ONE (19:00)
[2023-01-09] MEDS ORDERED: FUROSEMIDE 40MG/4ML VIAL IVP ONE (19:00)
[2023-01-09 20:32] LABS: TROPONIN I HIGH SENSITIVITY 125 ng/L (<78)
[2023-01-09] MEDS ORDERED: ACETAMINOPHEN 500MG TABLET PO NR (20:45)
[2023-01-09 22:50] VITALS: BP 121/71; PULSE 71; RESP 20; TEMP 97.1
[2023-01-09 23:00] VITALS: BP 121/71; PULSE 71; RESP 20; TEMP 97.1
[2023-01-09] MEDS ORDERED: LORAZEPAM 1MG TABLET PO PRN (23:45)
[2023-01-09] MEDS ORDERED: ONDANSETRON HCL 4MG/2ML INJ IV PRN (23:45)
[2023-01-09] MEDS ORDERED: FURO80TA3 PO (23:45)
[2023-01-09] MEDS ORDERED: GUAIFENESIN-DM 200MG-20MG/10ML UDC PO PRN (23:45)
[2023-01-10] VITALS (10 sets, daily range): BP systolic 86–125; BP diastolic 59–78; PULSE 68–94; RESP 16–20; TEMP 97.1–98.2; O2SAT 93–94
[2023-01-10] MEDS: HYDROCODONE/ACETAMINOPHEN 5/325MG TABLET PO PRN ×3 (00:16→21:49)
[2023-01-10] MEDS: QUETIAPINE FUMARATE 25MG TABLET PO SCH ×2 (00:17→20:53)
[2023-01-10] MEDS: IPRATROPIUM/ALBUTEROL 0.5-3(2.5)MG/3ML NEB HHN SCH ×4 (08:41→23:31)
[2023-01-10] MEDS: CARVEDILOL 3.125 MG TABLET PO SCH ×2 (09:49→20:54)
[2023-01-10] MEDS: ASPIRIN 81MG EC TABLET PO SCH (09:49)
[2023-01-10] MEDS: FUROSEMIDE 40MG/4ML VIAL IVP SCH ×2 (09:49→20:53)
[2023-01-10] MEDS: LOSARTAN 50 MG TABLET PO SCH (09:49)
[2023-01-10] MEDS: ENOXAPARIN 40MG/0.4ML SYR SUBCUT SCH (09:51)
[2023-01-10] MEDS ORDERED: LOSA25TA26 MT (12:07)
[2023-01-10] MEDS ORDERED: CARV6.2548 MT (12:07)
[2023-01-10] MEDS ORDERED: FURO80TA87 MT (12:07)
[2023-01-10] MEDS ORDERED: POTA-205 MT (12:07)
[2023-01-10] MEDS ORDERED: ALBU18HF2 IH (12:10)
[2023-01-10] MEDS ORDERED: FLUT1DIS3 INH (12:10)
[2023-01-11] VITALS (10 sets, daily range): BP systolic 86–115; BP diastolic 55–76; PULSE 73–99; RESP 16–20; TEMP 97.4–99.8; O2SAT 94–98
[2023-01-11] MEDS: IPRATROPIUM/ALBUTEROL 0.5-3(2.5)MG/3ML NEB HHN SCH ×5 (03:03→20:51)
[2023-01-11] MEDS: HYDROCODONE/ACETAMINOPHEN 5/325MG TABLET PO PRN ×3 (08:57→21:06)
[2023-01-11] MEDS: ASPIRIN 81MG EC TABLET PO SCH (08:57)
[2023-01-11] MEDS: CARVEDILOL 3.125 MG TABLET PO SCH ×2 (08:57→21:07)
[2023-01-11] MEDS: FUROSEMIDE 40MG/4ML VIAL IVP SCH ×2 (08:57→21:06)
[2023-01-11] MEDS: LOSARTAN 50 MG TABLET PO SCH (08:57)
[2023-01-11] MEDS: ENOXAPARIN 40MG/0.4ML SYR SUBCUT SCH (08:58)
[2023-01-11] MEDS ORDERED: GUAI600T26 MT (10:56)
[2023-01-11] MEDS ORDERED: IBUP-2029 MT (10:56)
[2023-01-11] MEDS: AZITHROMYCIN 250 MG TABLET PO SCH (13:04)
[2023-01-11] MEDS ORDERED: NALOXONE HCL 0.4MG/ML VIAL IV PRN (18:45)
[2023-01-11] MEDS: GUAIFENESIN 600MG ER TABLET PO SCH (21:07)
[2023-01-11] MEDS: QUETIAPINE FUMARATE 25MG TABLET PO SCH (21:07)
[2023-01-12] VITALS (13 sets, daily range): BP systolic 81–107; BP diastolic 44–78; PULSE 57–96; RESP 16–20; TEMP 98–101.3; O2SAT 93–96
[2023-01-12] MEDS: IPRATROPIUM/ALBUTEROL 0.5-3(2.5)MG/3ML NEB HHN SCH ×6 (00:33→22:01)
[2023-01-12] MEDS: FUROSEMIDE 40MG/4ML VIAL IVP SCH ×2 (08:54→20:19)
[2023-01-12] MEDS: GUAIFENESIN 600MG ER TABLET PO SCH ×2 (09:00→20:19)
[2023-01-12] MEDS: AZITHROMYCIN 250 MG TABLET PO SCH (09:00)
[2023-01-12] MEDS: CARVEDILOL 3.125 MG TABLET PO SCH ×2 (09:00→20:21)
[2023-01-12] MEDS: LOSARTAN 50 MG TABLET PO SCH (09:00)
[2023-01-12] MEDS: ENOXAPARIN 40MG/0.4ML SYR SUBCUT SCH (09:17)
[2023-01-12] MEDS: ASPIRIN 81MG EC TABLET PO SCH (09:17)
[2023-01-12] MEDS: HYDROCODONE/ACETAMINOPHEN 5/325MG TABLET PO PRN ×2 (12:11→20:20)
[2023-01-12] MEDS: QUETIAPINE FUMARATE 25MG TABLET PO SCH (20:19)
[2023-01-13] VITALS (8 sets, daily range): BP systolic 96–128; BP diastolic 60–83; PULSE 48–91; RESP 16–19; TEMP 97.7–98.2; O2SAT 98–99
[2023-01-13] MEDS: IPRATROPIUM/ALBUTEROL 0.5-3(2.5)MG/3ML NEB HHN SCH ×5 (04:32→21:43)
[2023-01-13] MEDS: HYDROCODONE/ACETAMINOPHEN 5/325MG TABLET PO PRN ×3 (08:45→21:20)
[2023-01-13] MEDS: CARVEDILOL 3.125 MG TABLET PO SCH ×2 (09:00→21:00)
[2023-01-13] MEDS: FUROSEMIDE 40MG/4ML VIAL IVP SCH (09:00)
[2023-01-13] MEDS: LOSARTAN 50 MG TABLET PO SCH (09:00)
[2023-01-13] MEDS: DOCUSATE SODIUM 250MG CAPSULE PO SCH (09:43)
[2023-01-13] MEDS: GUAIFENESIN 600MG ER TABLET PO SCH ×2 (09:44→21:20)
[2023-01-13] MEDS: ASPIRIN 81MG EC TABLET PO SCH (09:44)
[2023-01-13] MEDS: ENOXAPARIN 40MG/0.4ML SYR SUBCUT SCH (09:46)
[2023-01-13] MEDS: AZITHROMYCIN 250 MG TABLET PO SCH (09:57)
[2023-01-13] MEDS: QUETIAPINE FUMARATE 25MG TABLET PO SCH (21:20)
[2023-01-13] MEDS: FUROSEMIDE 40MG TABLET PO SCH (21:20)
[2023-01-14] VITALS (8 sets, daily range): BP systolic 97–117; BP diastolic 55–78; PULSE 75–89; RESP 15–19; TEMP 97.7–98.9; O2SAT 97
[2023-01-14] MEDS: IPRATROPIUM/ALBUTEROL 0.5-3(2.5)MG/3ML NEB HHN SCH ×7 (01:33→20:56)
[2023-01-14] MEDS: AZITHROMYCIN 250 MG TABLET PO SCH (08:41)
[2023-01-14] MEDS: FUROSEMIDE 40MG TABLET PO SCH ×2 (08:41→21:00)
[2023-01-14] MEDS: ASPIRIN 81MG EC TABLET PO SCH (08:41)
[2023-01-14] MEDS: GUAIFENESIN 600MG ER TABLET PO SCH ×2 (08:41→21:00)
[2023-01-14] MEDS: DOCUSATE SODIUM 250MG CAPSULE PO SCH ×2 (09:00→18:43)
[2023-01-14] MEDS: CARVEDILOL 3.125 MG TABLET PO SCH ×2 (09:00→21:00)
[2023-01-14] MEDS: LOSARTAN 50 MG TABLET PO SCH (09:00)
[2023-01-14] MEDS: HYDROCODONE/ACETAMINOPHEN 5/325MG TABLET PO PRN ×2 (10:03→18:42)
[2023-01-14] MEDS: QUETIAPINE FUMARATE 25MG TABLET PO SCH (21:00)
[2023-01-15] VITALS: BP 94/71; PULSE 79; RESP 18; TEMP 97.2
[2023-01-15] MEDS: IPRATROPIUM/ALBUTEROL 0.5-3(2.5)MG/3ML NEB HHN SCH
[2023-01-15] MEDS: HYDROCODONE/ACETAMINOPHEN 5/325MG TABLET PO PRN ×2 (03:35→09:36)
[2023-01-15 04:00] VITALS: BP 98/63; PULSE 84; RESP 18; TEMP 96.4
[2023-01-15] MEDS: GUAIFENESIN 600MG ER TABLET PO SCH (09:34)
[2023-01-15] MEDS: AZITHROMYCIN 250 MG TABLET PO SCH (09:35)
[2023-01-15] MEDS: LOSARTAN 50 MG TABLET PO SCH (09:35)
[2023-01-15] MEDS: FUROSEMIDE 40MG TABLET PO SCH (09:35)
[2023-01-15] MEDS: CARVEDILOL 3.125 MG TABLET PO SCH (09:35)
[2023-01-15 09:36] VITALS: RESP 16
[2023-01-15] MEDS: ASPIRIN 81MG EC TABLET PO SCH (09:36)
[2023-01-15 16:10] VITALS: BP 104/64; PULSE 67; TEMP 97.7; O2SAT 97
== END 2023-01-15 16:41 | disposition home or self-care (01) | DRG 194 ==
LOC: ER 15:21 → 8WST 19:03 → EDBEDREQTM 19:06 → EDBEDREQSVC 19:06 → EDBEDREQ 19:06 → 6WST 01-11 17:54
PROVIDERS: ADMIT Internal Medicine; ATTEND Internal Medicine
DX: I11.0 Hypertensive heart disease with heart failure (principal); J44.1 Chronic obstructive pulmonary disease with (acute) exacerbation; I42.9 Cardiomyopathy, unspecified; I50.23 Acute on chronic systolic (congestive) heart failure; J44.9 Chronic obstructive pulmonary disease, unspecified; Z20.822 Contact with and (suspected) exposure to COVID-19; D72.819 Decreased white blood cell count, unspecified; F20.9 Schizophrenia, unspecified; F17.210 Nicotine dependence, cigarettes, uncomplicated; F15.90 Other stimulant use, unspecified, uncomplicated; Z79.899 Other long term (current) drug therapy
CPT/HCPCS: 36415; 71045; 80053; 83880; 84484; 85025; 87426; 87804; 93005; 93306; 94640; 97162; 99285; C9803; J1650; J1940

== ENCOUNTER 2023-12-22 10:38 | Inpatient (IN) | payer OTHER ==
[~2023-12-22] VITALS: Ht 167.6 cm; Wt 72.6 kg
[2023-12-22] VITALS (7 sets, daily range): BP systolic 139–173; BP diastolic 88–98; PULSE 78–100; RESP 20–26; TEMP 36.114–36.3918; O2SAT 91–98
[~2023-12-22 10:38] MED LIST changes: +CARV6.2548 MT; -FURO80TA3 PO; +GUAI600T26 MT; +HYDR-4001 MT; -LISI-186 PO; +LOSA25TA26 MT; -METO-396 PO; -P20 PO; +POTA-205 MT; +SUCR1TAB30 PO; +THIA100T72 PO
[2023-12-22 11:38] LABS: BASOPHILS % 0.6 % (0.0-2.0); EOSINOPHILS % 6.6 % (0.0-5.0); HEMATOCRIT. 35.1 % (42.0-52.0); HEMOGLOBIN. 11.4 g/dL (14.0-18.0); LYMPHOCYTES % 30.9 % (20.0-50.0); MEAN CORPUSCULAR HGB CONC 32.6 g/dL (31.0-37.0); MEAN CORPUSCULAR VOLUME 91.9 fL (80.0-94.0); MEAN PLATELET VOLUME 8.2 fl (7.4-10.4); MONOCYTES % 12.2 % (2.0-8.0); NEUTROPHILS % 49.7 % (40.0-76.0); PLATELET 169 x1000/uL (130-400); RED BLOOD CELL COUNT 3.82 mill/uL (4.7-6.1); RED CELL DISTRIBUTION WIDTH 17.5 % (11.6-14.6); WHITE BLOOD COUNT 4.9 x1000/uL (4.5-11.0)
[2023-12-22 11:41] LABS: CHLORIDE 104 mEq/L (98-107); POTASSIUM 3.4 mEq/L (3.5-5.1); SODIUM 137 mEq/L (136-145)
[2023-12-22 11:42] LABS: CALCIUM 9.3 mg/dL (8.7-10.4); CARBON DIOXIDE 28 mEq/L (21-32)
[2023-12-22] MEDS: ALBUTEROL (0.083%) 2.5MG/3ML NEB HHN STA (11:43)
[2023-12-22] MEDS: IPRATROPIUM BROMIDE (0.02%) 0.5MG/2.5ML NEB HHN STA (11:43)
[2023-12-22 11:47] LABS: CREATININE 1.2 mg/dL (0.6-1.3); GLUCOSE 79 mg/dL (70-105); UREA NITROGEN BLOOD 16 mg/dL (9-23)
[2023-12-22] MEDS: METHYLPREDNISOLONE SOD SUCC 125MG/2ML (ACT-O-VIAL) IV STA (11:48)
[2023-12-22 11:49] LABS: ALANINE AMINOTRANSFERASE 28 IU/L (10-49); ALBUMIN 4.1 g/dL (3.2-4.8); ASPARTATE AMINOTRANSFERASE 46 IU/L (<34); BILIRUBIN TOTAL 1.5 mg/dL (0.1-1.0); PROTEIN TOTAL 6.8 g/dL (6.0-8.3)
[2023-12-22 11:52] LABS: INR 1.2; PROTHROMBIN TIME 13.1 sec (9.6-11.0)
[2023-12-22 12:19] LABS: TROPONIN I HIGH SENSITIVITY 99 ng/L (3.0-53)
[2023-12-22] MEDS: ASPIRIN 325MG TABLET PO ONE (12:48)
[2023-12-22] MEDS: MORPHINE SULFATE 4 MG/ML INJ (FOR IV/IM USE) IV ONE (12:52)
[2023-12-22] MEDS: HYDROMORPHONE HCL/PF 2MG/ML INJ IV ONE (12:53)
[2023-12-22] MEDS ORDERED: CLONIDINE 0.1MG TABLET PO PRN (13:45)
[2023-12-22] MEDS ORDERED: ONDANSETRON HCL 4MG/2ML INJ IV PRN (13:45)
[2023-12-22] MEDS ORDERED: ACETAMINOPHEN 325MG TABLET PO PRN (13:45)
[2023-12-22 14:11] LABS: TROPONIN I HIGH SENSITIVITY 91 ng/L (3.0-53)
[2023-12-22] MEDS: AMLODIPINE 5MG TABLET PO SCH (16:02)
[2023-12-22 17:59] LABS: TROPONIN I HIGH SENSITIVITY 86 ng/L (3.0-53)
[2023-12-22] MEDS: ATORVASTATIN CALCIUM 10MG TABLET PO SCH (23:14)
[2023-12-23] VITALS (8 sets, daily range): BP systolic 107–139; BP diastolic 52–88; PULSE 77–92; RESP 18–22; TEMP 36.14–36.72516; O2SAT 94–97
[2023-12-23 00:16] LABS: TROPONIN I HIGH SENSITIVITY 67 ng/L (3.0-53)
[2023-12-23] MEDS: HYDROCODONE/ACETAMINOPHEN 10/325MG TABLET PO PRN (00:41)
[2023-12-23 06:27] LABS: CALCIUM 9.2 mg/dL (8.7-10.4); CHLORIDE 105 mEq/L (98-107); POTASSIUM 4.3 mEq/L (3.5-5.1); SODIUM 136 mEq/L (136-145)
[2023-12-23 06:28] LABS: CARBON DIOXIDE 24 mEq/L (21-32)
[2023-12-23 06:33] LABS: CREATININE 1.2 mg/dL (0.6-1.3); GLUCOSE 129 mg/dL (70-105); UREA NITROGEN BLOOD 16 mg/dL (9-23)
[2023-12-23 08:08] LABS: EOSINOPHILS % 0.1 % (0.0-5.0); HEMATOCRIT. 37.1 % (42.0-52.0); HEMOGLOBIN. 11.8 g/dL (14.0-18.0); MEAN CORPUSCULAR HEMOGLOBIN 29.2 pg (28.0-32.0); MEAN CORPUSCULAR HGB CONC 31.8 g/dL (31.0-37.0); MEAN CORPUSCULAR VOLUME 91.8 fL (80.0-94.0); MONOCYTES % 3.8 % (2.0-8.0); NEUTROPHILS % 83.1 % (40.0-76.0); PLATELET 177 x1000/uL (130-400); RED BLOOD CELL COUNT 4.04 mill/uL (4.7-6.1); RED CELL DISTRIBUTION WIDTH 17.4 % (11.6-14.6); WHITE BLOOD COUNT 4.3 x1000/uL (4.5-11.0)
[2023-12-23] MEDS: ASPIRIN 81MG TABLET PO SCH (08:50)
[2023-12-23] MEDS: IPRATROPIUM/ALBUTEROL 0.5-3(2.5)MG/3ML NEB HHN PRN (10:02)
[2023-12-23] MEDS: FUROSEMIDE 40MG/4 ML UDC PO SCH (10:58)
[2023-12-24] VITALS (8 sets, daily range): BP systolic 94–134; BP diastolic 61–86; PULSE 78–90; RESP 17–20; TEMP 35.2806–36.72516; O2SAT 92–100
[2023-12-24 06:48] LABS: CARBON DIOXIDE 23 mEq/L (21-32); CHLORIDE 107 mEq/L (98-107); POTASSIUM 3.6 mEq/L (3.5-5.1); SODIUM 138 mEq/L (136-145)
[2023-12-24 06:49] LABS: CALCIUM 9.1 mg/dL (8.7-10.4)
[2023-12-24 06:54] LABS: CREATININE 1.3 mg/dL (0.6-1.3); GLUCOSE 127 mg/dL (70-105); UREA NITROGEN BLOOD 20 mg/dL (9-23)
[2023-12-24 07:13] LABS: BASOPHILS % 0.3 % (0.0-2.0); EOSINOPHILS % 1.8 % (0.0-5.0); HEMATOCRIT. 34.7 % (42.0-52.0); HEMOGLOBIN. 11.1 g/dL (14.0-18.0); LYMPHOCYTES % 21.1 % (20.0-50.0); MEAN CORPUSCULAR HEMOGLOBIN 29.8 pg (28.0-32.0); MEAN CORPUSCULAR HGB CONC 32.1 g/dL (31.0-37.0); MEAN PLATELET VOLUME 8.9 fl (7.4-10.4); MONOCYTES % 7.2 % (2.0-8.0); NEUTROPHILS % 69.6 % (40.0-76.0); PLATELET 197 x1000/uL (130-400); RED BLOOD CELL COUNT 3.73 mill/uL (4.7-6.1); RED CELL DISTRIBUTION WIDTH 17.7 % (11.6-14.6); WHITE BLOOD COUNT 6.5 x1000/uL (4.5-11.0)
[2023-12-24] MEDS ORDERED: ATOR10TA PO (09:30)
[2023-12-24] MEDS ORDERED: FLUT1DIS3 INH (09:30)
[2023-12-24] MEDS ORDERED: MONT-46 MT (09:30)
[2023-12-24] MEDS ORDERED: ALBU18HF2 IH (09:30)
[2023-12-24] MEDS ORDERED: IPRA3AMP9 HHN (09:30)
[2023-12-24 10:09] LABS: BG BASE EXCESS -3.6 mmol/L (-2.0-3.0); BG CARBOXYHEMOGLOBIN 0.5 % (0.5-1.5); BG DEOXYHEMOGLOBIN 3.6 % (0.0-5.0); BG FRACTION INSPIRED OXYGEN 21; BG HCO3 ACT 21.2 mmol/L (21.0-28.0); BG METHEMOGLOBIN 0.3 % (0.5-1.5); BG OXYGEN SATURATION 96.4 % (94.0-98.0); BG OXYHEMOGLOBIN 95.6 % (94.0-98.0); BG PCO2 37.6 mmHg (35.0-48.0); BG PH 7.369 (7.350-7.450); BG PO2 91.8 mmHg (83.0-108.0); BG SAMPLE SITE RIGHT BRACHIAL; BG TOTAL HEMOGLOBIN 12.1 g/dL (13.5-17.5); BG VENT MODE ROOM AIR
[2023-12-24] MEDS: GUAIFENESIN 600MG ER TABLET PO SCH (11:05)
[2023-12-25] VITALS (9 sets, daily range): BP systolic 94–112; BP diastolic 70–86; PULSE 81–100; RESP 18–21; TEMP 36.3918–36.78072; O2SAT 93–100
[2023-12-25] MEDS: BENZONATATE 100MG CAPSULE PO PRN (20:34)
[2023-12-26] VITALS (7 sets, daily range): BP systolic 98–129; BP diastolic 62–81; PULSE 72–99; RESP 18–20; TEMP 36.50292–36.72516; O2SAT 96–100
[2023-12-26] MEDS: DIPHENHYDRAMINE 50MG/ML VIAL IV PRN (03:03)
== END 2023-12-26 16:48 | disposition home or self-care (01) | DRG 194 ==
LOC: ER 10:44 → EDBEDREQ 11:26 → 5WST 17:00 → 8WST 22:02
PROVIDERS: ADMIT Internal Medicine; ATTEND Internal Medicine
PROC: 5A1D70Z Performance of Urinary Filtration, Intermittent, Less than 6 Hours Per Day (ICD-10-PCS; principal; 2023-12-22)
DX: I11.0 Hypertensive heart disease with heart failure (principal); J96.00 Acute respiratory failure, unspecified whether with hypoxia or hypercapnia; I21.A1 Myocardial infarction type 2; J45.901 Unspecified asthma with (acute) exacerbation; D72.10 Eosinophilia, unspecified; Z20.822 Contact with and (suspected) exposure to COVID-19; I42.8 Other cardiomyopathies; E78.5 Hyperlipidemia, unspecified; J44.9 Chronic obstructive pulmonary disease, unspecified; F15.90 Other stimulant use, unspecified, uncomplicated; F17.210 Nicotine dependence, cigarettes, uncomplicated; I34.0 Nonrheumatic mitral (valve) insufficiency; I49.3 Ventricular premature depolarization; J98.4 Other disorders of lung; Z91.148 Patient's other noncompliance with medication regimen for other reason; Z86.73 Personal history of transient ischemic attack (TIA), and cerebral infarction without residual deficits; Z79.51 Long term (current) use of inhaled steroids; I50.23 Acute on chronic systolic (congestive) heart failure
CPT/HCPCS: 36415; 36600; 71045; 80048; 80053; 82375; 82805; 83880; 84145; 84484; 85025; 87426; 90935; 93005; 94640; 99291; J1170; J1200; J1940; J2270; J2919

== ENCOUNTER 2024-01-16 04:50 | Inpatient (IN) | payer OTHER ==
[~2024-01-16] VITALS: Ht 172.7 cm; Wt 180.0 kg
[~2024-01-16 04:50] MED LIST changes: +ATOR10TA PO; -CARV6.2548 MT; +MONT-46 MT
[2024-01-16 05:01] VITALS: O2SAT 100
[2024-01-16 06:02] LABS: BASOPHILS % 1.1 % (0.0-2.0); EOSINOPHILS % 4.4 % (0.0-5.0); HEMATOCRIT. 35.9 % (42.0-52.0); HEMOGLOBIN. 11.9 g/dL (14.0-18.0); LYMPHOCYTES % 26.9 % (20.0-50.0); MEAN CORPUSCULAR HEMOGLOBIN 29.6 pg (28.0-32.0); MEAN CORPUSCULAR HGB CONC 33.2 g/dL (31.0-37.0); MEAN CORPUSCULAR VOLUME 89.2 fL (80.0-94.0); MEAN PLATELET VOLUME 8.7 fl (7.4-10.4); MONOCYTES % 6.1 % (2.0-8.0); NEUTROPHILS % 61.5 % (40.0-76.0); PLATELET 176 x1000/uL (130-400); RED BLOOD CELL COUNT 4.03 mill/uL (4.7-6.1); RED CELL DISTRIBUTION WIDTH 18.1 % (11.6-14.6); WHITE BLOOD COUNT 4.3 x1000/uL (4.5-11.0)
[2024-01-16] MEDS: FUROSEMIDE 40MG/4ML VIAL IV ONE (06:04)
[2024-01-16] MEDS: HYDROCODONE/ACETAMINOPHEN 7.5/325MG TABLET PO ONE (06:08)
[2024-01-16] MEDS: DIPHENHYDRAMINE 50MG/ML VIAL IV ONE (06:09)
[2024-01-16 06:12] LABS: CHLORIDE 107 mEq/L (98-107); POTASSIUM 3.6 mEq/L (3.5-5.1); SODIUM 139 mEq/L (136-145)
[2024-01-16 06:13] LABS: CALCIUM 9.6 mg/dL (8.7-10.4); CARBON DIOXIDE 22 mEq/L (21-32)
[2024-01-16 06:18] LABS: GLUCOSE 103 mg/dL (70-105); UREA NITROGEN BLOOD 14 mg/dL (9-23)
[2024-01-16 06:35] LABS: TROPONIN I HIGH SENSITIVITY 108 ng/L (3.0-53)
[2024-01-16 11:26] LABS: TROPONIN I HIGH SENSITIVITY 101 ng/L (3.0-53)
[2024-01-16] MEDS: LISINOPRIL 10MG TABLET PO SCH (17:45)
[2024-01-16] MEDS ORDERED: IPRATROPIUM/ALBUTEROL 0.5-3(2.5)MG/3ML NEB HHN PRN (17:45)
[2024-01-16 18:28] VITALS: BP 110/56; PULSE 60; RESP 18; TEMP 36.50292; O2SAT 100
[2024-01-16] MEDS: HYDROCODONE/ACETAMINOPHEN 5/325MG TABLET PO PRN (18:41)
[2024-01-16 20:00] VITALS: BP 110/55; PULSE 105; RESP 18; TEMP 36.78072; O2SAT 98
[2024-01-16 20:40] VITALS: PULSE 105
[2024-01-16] MEDS: CARVEDILOL 3.125 MG TABLET PO SCH (20:40)
[2024-01-16] MEDS: ATORVASTATIN CALCIUM 20MG TABLET PO SCH (20:44)
[2024-01-17] MEDS ORDERED: FUROSEMIDE 40MG/4ML VIAL IVP SCH (09:00)
[2024-01-17] MEDS ORDERED: ASPIRIN 81MG TABLET PO SCH (09:00)
== END 2024-01-16 22:20 | disposition short-term general hospital (02) | DRG 141 ==
LOC: ER 04:50 → EDBEDREQ 12:32 → 5WST 18:15
PROVIDERS: ADMIT Internal Medicine; ATTEND Internal Medicine
DX: J45.901 Unspecified asthma with (acute) exacerbation (principal); J96.01 Acute respiratory failure with hypoxia; I50.23 Acute on chronic systolic (congestive) heart failure; I11.0 Hypertensive heart disease with heart failure; I42.9 Cardiomyopathy, unspecified; E78.5 Hyperlipidemia, unspecified; F17.210 Nicotine dependence, cigarettes, uncomplicated; J98.4 Other disorders of lung; Z86.73 Personal history of transient ischemic attack (TIA), and cerebral infarction without residual deficits
CPT/HCPCS: 36415; 71045; 80048; 83880; 84484; 85025; 93005; 99285; J1200; J1940

== ENCOUNTER 2024-02-17 13:16 | Inpatient (IN) | payer MEDICAID, OTHER ==
[~2024-02-17] VITALS: Ht 170.2 cm; Wt 79.2 kg
[2024-02-17] MEDS: IPRATROPIUM/ALBUTEROL 0.5-3(2.5)MG/3ML NEB HHN ONE (15:45)
[2024-02-17 15:54] LABS: CHLORIDE 108 mEq/L (98-107); POTASSIUM 3.2 mEq/L (3.5-5.1); SODIUM 138 mEq/L (136-145)
[2024-02-17 15:55] LABS: CARBON DIOXIDE 24 mEq/L (21-32)
[2024-02-17 15:56] LABS: BASOPHILS % 0.7 % (0.0-2.0); CALCIUM 9.2 mg/dL (8.7-10.4); EOSINOPHILS % 9.3 % (0.0-5.0); HEMATOCRIT. 37.5 % (42.0-52.0); HEMOGLOBIN. 12.3 g/dL (14.0-18.0); LYMPHOCYTES % 23.6 % (20.0-50.0); MEAN CORPUSCULAR HEMOGLOBIN 29.4 pg (28.0-32.0); MEAN CORPUSCULAR HGB CONC 32.7 g/dL (31.0-37.0); MEAN PLATELET VOLUME 8.5 fl (7.4-10.4); MONOCYTES % 7.1 % (2.0-8.0); NEUTROPHILS % 59.3 % (40.0-76.0); PLATELET 187 x1000/uL (130-400); RED BLOOD CELL COUNT 4.17 mill/uL (4.7-6.1); RED CELL DISTRIBUTION WIDTH 17.9 % (11.6-14.6); WHITE BLOOD COUNT 4.2 x1000/uL (4.5-11.0)
[2024-02-17 16:00] LABS: GLUCOSE 113 mg/dL (70-105); INR 1.2; PARTIAL THROMBOPLASTIN TIME 29.3 sec (23.4-31.0); PROTHROMBIN TIME 13.5 sec (9.6-11.0); UREA NITROGEN BLOOD 9 mg/dL (9-23)
[2024-02-17 16:05] LABS: TROPONIN I HIGH SENSITIVITY 89 ng/L (3.0-53)
[2024-02-17] MEDS: PREDNISONE 20MG TABLET PO ONE (16:31)
[2024-02-17] MEDS: LORAZEPAM 0.5MG TABLET PO ONE (17:03)
[2024-02-17 18:06] LABS: TROPONIN I HIGH SENSITIVITY 102 ng/L (3.0-53)
[2024-02-18] MEDS: HYDROCODONE/ACETAMINOPHEN 5/325MG TABLET PO PRN (04:57)
[2024-02-18] MEDS: DIPHENHYDRAMINE 25MG CAPSULE PO PRN (05:20)
[2024-02-18] MEDS ORDERED: ACETAMINOPHEN 325MG TABLET PO PRN (13:30)
[2024-02-18] MEDS: SPIRONOLACTONE 25MG TABLET PO SCH (14:04)
[2024-02-18] MEDS: FUROSEMIDE 40MG TABLET PO SCH (14:04)
[2024-02-18] MEDS: CARVEDILOL 6.25 MG TABLET PO SCH (21:07)
[2024-02-18 21:39] VITALS: BP 118/80; PULSE 102; RESP 20; TEMP 36.50292; TEMP 36.5292; O2SAT 98
[2024-02-18] MEDS ORDERED: POTASSIUM CHLORIDE 20MEQ TABLET SR PO NR (21:45)
[2024-02-19] VITALS (9 sets, daily range): BP systolic 91–120; BP diastolic 61–82; PULSE 58–101; RESP 18–21; TEMP 36.05844–36.72516; O2SAT 95–98
[2024-02-19] MEDS: KETOROLAC 30MG/ML VIAL IV PRN (04:37)
[2024-02-19] MEDS: POTASSIUM CHLORIDE 20MEQ TABLET SR PO NR (04:47)
[2024-02-19] MEDS: LORAZEPAM 1MG TABLET PO PRN (04:55)
[2024-02-19] MEDS: LOSARTAN 25 MG TABLET PO SCH (09:00)
[2024-02-19] MEDS: IPRATROPIUM/ALBUTEROL 0.5-3(2.5)MG/3ML NEB HHN SCH (09:35)
[2024-02-19] MEDS ORDERED: IPRATROPIUM/ALBUTEROL 0.5-3(2.5)MG/3ML NEB HHN PRN (15:00)
[2024-02-19] MEDS ORDERED: NALOXONE HCL 0.4MG/ML VIAL IV PRN (22:45)
[2024-02-20] VITALS: BP 91/60; PULSE 86; RESP 19; TEMP 36.44736; O2SAT 100
[2024-02-20] MEDS: HYDROCODONE/ACETAMINOPHEN 5/325MG TABLET PO PRN (00:11)
[2024-02-20] MEDS: ONDANSETRON HCL 4MG/2ML INJ IV PRN (03:54)
[2024-02-20 04:00] VITALS: BP 139/98; PULSE 95; RESP 21; TEMP 36.44736; O2SAT 99
[2024-02-20 08:00] VITALS: BP 170/109; PULSE 79; RESP 20; TEMP 36.6696; O2SAT 99
[2024-02-20 10:44] VITALS: PULSE 89; RESP 18
[2024-02-20 12:00] VITALS: BP 90/64; PULSE 82; RESP 20; TEMP 36.22512; O2SAT 100
[2024-02-20 16:00] VITALS: BP 100/61; PULSE 87; RESP 19; TEMP 36.55848
[2024-02-20] MEDS ORDERED: DEXTROSE 50% WATER 50ML SYRINGE IV ONE ×2 (20:28→20:29)
[2024-02-20] MEDS ORDERED: POTASSIUM CHLORIDE 40 MEQ in DEXT 5% WATER 230 ML IV ONE (20:45)
[2024-02-20] MEDS ORDERED: KCL 20MEQ/100ML X 2 FOR TOTAL KCL 40MEQ/200ML IV SCH (20:45)
== END 2024-02-20 20:45 | DRG 194 ==
LOC: ER 13:23 → 5WST 17:36 → EDBEDREQ 17:38 → EDBEDREQTM 17:38 → 7WST 02-18 22:46 → 6WST 02-20 19:02
PROVIDERS: ADMIT Internal Medicine; ATTEND Internal Medicine
PROC: 5A12012 Performance of Cardiac Output, Single, Manual (ICD-10-PCS; principal; 2024-02-20)
PROC: 0BH17EZ Insertion of Endotracheal Airway into Trachea, Via Natural or Artificial Opening (ICD-10-PCS; 2024-02-20)
DX: I11.0 Hypertensive heart disease with heart failure (principal); J68.0 Bronchitis and pneumonitis due to chemicals, gases, fumes and vapors; I42.9 Cardiomyopathy, unspecified; I50.23 Acute on chronic systolic (congestive) heart failure; Z20.822 Contact with and (suspected) exposure to COVID-19; E87.6 Hypokalemia; F15.90 Other stimulant use, unspecified, uncomplicated; F17.210 Nicotine dependence, cigarettes, uncomplicated; Z59.00 Homelessness unspecified; Z86.73 Personal history of transient ischemic attack (TIA), and cerebral infarction without residual deficits; Z71.51 Drug abuse counseling and surveillance of drug abuser
CPT/HCPCS: 36415; 71045; 80048; 82962; 83880; 84484; 85025; 87426; 87804; 93005; 94640; 99291; J1885; J2405; J3480; J7512; Q0163